=== PATIENT | female | born 1975 | race Two or more races ===

== ENCOUNTER → 2024-07-22 | Outpatient (CLI) | payer MEDICAID, SELFPAY ==
--- NOTE | 2024-07-22 16:00 | XR_ITS ---
Examination: Thyroid sonography complete TECHNIQUE: Grayscale sonographic images thyroid lobes Exam date and time: July 22, 2024 1145 hours INDICATIONS: Difficulty swallowing breathing beginning 8 months ago, history right thyroidectomy 2018. FINDINGS: Absent right thyroid Left thyroid 4.4 x 1.6 x 2.1 cm Upper pole nodule 10 x 5 x 8 mm vascular IMPRESSION: Upper pole left thyroid nodule 10 x 5 x 8 mm
== END | disposition home or self-care (01) ==
LOC: CDIM 11:39
PROVIDERS: PCP Nurse Practitioner Family; Referring Provider Nurse Practitioner Family; Visit Provider Nurse Practitioner Family
DX: E04.1 Nontoxic single thyroid nodule (principal)
CPT/HCPCS: 76536

== ENCOUNTER 2024-08-17 08:30 | Outpatient (RCR) | payer MEDICAID, SELFPAY ==
--- NOTE | 2024-08-16 08:30 | XR_ITS ---
Examination: Nuclear medicine thyroid uptake and scan Exam date and time: August 16, 2024 0811 hours INDICATIONS: Diagnosis thyrotoxicosis, status post right thyroidectomy 2018, history upper pole left thyroid nodule TECHNIQUE AND FINDINGS: Oral administration 29 uCi [id number] 6 hour 24 hour uptake values and thyroid scan 6 hour uptake 19.6% normal range 6-24% 24 hour uptake 33% normal range 10-36% Single thyroid lobe activity which actually appears to be more on the right side, clinical correlation advised IMPRESSION: Normal thyroid uptake values
== END 2024-08-22 23:59 | disposition home or self-care (01) ==
LOC: SNUC 08:30
PROVIDERS: PCP Nurse Practitioner Family; Referring Provider Nurse Practitioner Family; Visit Provider Nurse Practitioner Family
DX: E05.90 Thyrotoxicosis, unspecified without thyrotoxic crisis or storm (principal)
CPT/HCPCS: 78013; A9516

== ENCOUNTER → 2024-08-18 | Outpatient (CLI) | payer MEDICAID, SELFPAY ==
--- NOTE | 2024-08-18 11:30 | XR_ITS ---
Examination: Retroperitoneal ultrasound, complete Technique: Multiple high resolution grayscale images of the retroperitoneum obtained, including kidneys and bladder. Exam date and time:August 18, 2024 1145 hours Comparison April 01, 2023 INDICATIONS: Flank pain with urination one year FINDINGS: Right kidney 10.9 cm cortex 1.8 cm Left kidney 12.0 cm cortex 1.4 cm Mild to moderate bilateral renal parenchymal scar formation No hydronephrosis Bladder wall is thickened 8 mm No bladder mass or bladder calculi Bladder prevoid volume 136 cc IMPRESSION: Mild to moderate bilateral renal parenchymal scar formation Bladder wall is thickened 8 mm, consider cystitis
== END | disposition home or self-care (01) ==
LOC: CDIM 11:23
PROVIDERS: PCP Internal Medicine; Referring Provider Internal Medicine; Visit Provider Internal Medicine
DX: N28.89 Other specified disorders of kidney and ureter (principal); N32.89 Other specified disorders of bladder
CPT/HCPCS: 76770

== ENCOUNTER → 2024-08-23 | Outpatient (CLI) | payer MEDICAID, SELFPAY ==
--- NOTE | 2024-08-23 | XR_ITS ---
Examination: Esophagram standard 16 spot fluoroscopic films of the esophagus Upright PA chest single view Upright soft tissue lateral neck single view Fluoroscopy Exam date and time: hours INDICATIONS: Thyroid surgery 2018 difficulty swallowing 5 years TECHNIQUE AND FINDINGS: Upright PA chest normal heart size lungs are clear Soft tissue lateral neck mild thickening of the epiglottis Patient swallowed thin barium with 16 spot fluoroscopic films of the esophagus Primary peristaltic esophageal waves No constricting esophageal lesion Mild intermittent gastroesophageal reflux. Moderate esophageal hernia. There is no stricture the gastroesophageal junction IMPRESSION: Mild intermittent gastroesophageal reflux Fluoroscopy 0.22 minutes, 16 spot fluoroscopic films
== END | disposition home or self-care (01) ==
PROVIDERS: PCP Nurse Practitioner Family; Referring Provider Nurse Practitioner Family; Visit Provider Nurse Practitioner Family
DX: K21.9 Gastro-esophageal reflux disease without esophagitis (principal)
CPT/HCPCS: 74220; A4699

== ENCOUNTER → 2024-09-21 | Outpatient (BNVA) | payer MEDICAID, SELFPAY | END | disposition home or self-care (01) | PROVIDERS: PCP Nurse Practitioner Family; Referring Provider Nurse Practitioner Family; Visit Provider Urology | DX: N28.89 Other specified disorders of kidney and ureter (principal); R33.9 Retention of urine, unspecified; E66.9 Obesity, unspecified; Z68.29 Body mass index [BMI] 29.0-29.9, adult | CPT/HCPCS: 81003; 99212; G0463 ==

== ENCOUNTER → 2025-04-25 | Outpatient (CLI) | payer MEDICAID, SELFPAY ==
--- NOTE | 2025-04-25 14:45 | XR_ITS ---
Examination: Bilateral hands, 6 views. Technique: AP, Oblique, Lateral each hand total 6 views Date and time of exam: April 25, 2025, 1526 hours INDICATIONS: Bilateral hand pain months. FINDINGS: Mild juxta articular bone demineralization No fracture or dislocation involving either hand No erosive or other significant arthritic change involving either hand No avascular necrosis No opaque foreign bodies Impression: No erosive or other significant arthritic change involving either hand
--- NOTE | 2025-04-25 14:45 | XR_ITS ---
Exam: elbow bilateral, 6 views Technique: Elbow AP, oblique each elbow 6 views Exam date and time: April 25, 2025, 1520 hours INDICATIONS: Elbow pain months FINDINGS: Normal bone density. No fracture or dislocation involving either elbow No foreign bodies No elbow effusions IMPRESSION: Negative for osseous abnormalities.
== END | disposition home or self-care (01) ==
LOC: CDIM 14:31
PROVIDERS: PCP Nurse Practitioner Family; Referring Provider Nurse Practitioner Gerontology; Visit Provider Nurse Practitioner Gerontology
DX: M79.642 Pain in left hand (principal); M79.641 Pain in right hand; M25.522 Pain in left elbow; M25.521 Pain in right elbow
CPT/HCPCS: 73080; 73130